=== PATIENT | female | born 1965 | race Caucasian/White ===

== ENCOUNTER 2025-03-25 20:41 | Emergency (ER) | payer MEDICARE ==
[~2025-03-25] VITALS: Ht 162.6 cm; Wt 97.5 kg
[2025-03-25] MEDS ORDERED: MICARDIS40 MG PO (21:21)
[2025-03-25] MEDS ORDERED: PAROXETINE HCL30 MG PO (21:22)
[2025-03-25] MEDS ORDERED: AMITRIPTYLINE H75 MG PO (21:22)
[2025-03-25] MEDS ORDERED: METHADONE HCL5 MG PO (21:22)
[2025-03-25] MEDS ORDERED: LIDOCAINE & ANTACID 35 ML BTL PO ONE (22:00)
[2025-03-25] MEDS ORDERED: [UNRECOGNIZED DRUG - OTHER] PO (22:10)
[2025-03-25 22:17] VITALS: BP 146/100
== END 2025-03-25 22:16 | disposition home or self-care (01) ==
LOC: ED 20:41
DX: K12.0 Recurrent oral aphthae (principal); I10 Essential (primary) hypertension; J45.909 Unspecified asthma, uncomplicated; Z88.2 Allergy status to sulfonamides; Z88.8 Allergy status to other drugs, medicaments and biological substances; Z91.012 Allergy to eggs; Z91.011 Allergy to milk products
CPT/HCPCS: 99282